=== PATIENT | female | born 1980 | race Hispanic/Latino ===

== ENCOUNTER 2017-02-12 10:01 | Inpatient (IN) | payer BC, OTHER ==
[2017-02-12] MEDS ORDERED: cefOXitin IV 2 gm in Dextrose 50 ML IVPB ONE (10:31)
[2017-02-12] MEDS: Lactated Ringer's 1,000 ML IV SCH ×2 (10:50→18:55)
--- NOTE | 2017-02-12 10:54 | OBHP ---
Datetime: 02/12/2017 10:37 IP Adm Impression: Term, intrauterine ; Active labor IP Adm Impression Other: previous csection IP Admit Plan: Admit to unit; Initiate Section protocol Admit Comment, IP Provider: chief complaint-contractions HPI 36 y/o at 38.3 wga here with c/o contractions since alst 2 days and worse since last nigh t.Patient denies vaginal bleeding or loss of fluid.Contractions worsened and hence she came over to [facility].Reporst active movement.denies loss of fluid course AMA, care with dr wagner PMH osteopenia, heart murmur, palpitations PSH csection, urethral dilation, tonsillectomy OBGYN HX ; csectionx1 for arrest of dilation; hx of hpv Social hx denies alcohol or illicit drug use.smoked 3-4 cig/day prior to but stopped whe n she found out she is pregant Exam see exam section A/P 36 y/o at 38.3 wga in labor.Hx of csection. -patient to be admitted as repeat csection in labor -start iv -routine labs Dr Wagner aware Pelvic Type - PN: Adequate Extremities - PN: Normal Abdomen - PN: Normal Back - PN: Normal Lungs - PN: Normal Heart - PN: Normal Neurologic - PN: Normal General - PN: Normal Contraction Comments Provider: every 2-5min Gestation - Est Wks by US: 38.3 IP Hx Assessment: The History has been Reviewed and is Current EGA AdmitDate IP: 38.3 Vital Signs Provider: Reviewed; Within Normal Limits IP Chief Complaint: Uterine contractions FHR Category Provider Fetus A: Category I Dilatation, Provider: 1 Effacement, Provider: 50 Station, Provider: -3 Genitourinary Exam: Normal DTRs - PN: Normal
[2017-02-12 11:20] LABS: BASO % 0.3 % (0.0-2.0); EOS # 0.1 K/uL (0.0-0.7); EOS % 0.9 % (0.0-4.0); HEMATOCRIT 37.9 % (34.0-47.0); LYMPH # 2.2 K/uL (1.0-4.3); LYMPH % 16.9 % (20.0-40.0); MEAN CELL VOLUME 96.7 fL (81.0-99.0); MEAN CORPUSCULAR HEMOGLOBIN 31.8 pg (27.0-31.0); MEAN CORPUSCULAR HGB CONC 32.9 g/dL (33.0-37.0); MEAN PLATELET VOLUME 10.3 fL (7.2-11.7); MONO # 0.8 K/uL (0.0-0.8); MONO % 6.4 % (0.0-10.0); NRBC % 0.1 % (0.0-2.0); RED CELL DISTRIBUTION WIDTH 13.9 % (11.5-14.5)
[2017-02-12] MEDS ORDERED: Oxytocin 20 units in LR 2,000 ML IV ONE (11:29)
[2017-02-12 11:37] LABS: RBC URINE 1 /hpf (0-3); URINE BACTERIA RARE (<OCC); URINE BILIRUBIN NEGATIVE (NEGATIVE); URINE BLOOD NEGATIVE (NEGATIVE); URINE COLOR Yellow (YELLOW); URINE GLUCOSE (UA) NORMAL (Normal); URINE KETONE NEGATIVE (NEGATIVE); URINE LEUKOCYTE ESTERASE NEG Leu/uL (Negative); URINE PROTEIN NEGATIVE (NEGATIVE); URINE UROBILINOGEN NORMAL mg/dL (0.2-1.0); WBC URINE 1 /hpf (0-5)
[2017-02-12] MEDS ORDERED: Sodium Citrate/Citric Acid 15 ml Sol PO ONE (11:56)
[2017-02-12] MEDS ORDERED: Sodium Citrate/Citric Acid 15 ml Sol ONE (12:06)
[2017-02-12 12:12] LABS: CHLORIDE 100 mmol/L (98-107); POTASSIUM 3.8 mmol/L (3.6-5.2); SODIUM 133 mmol/L (132-148)
[2017-02-12 12:14] LABS: ALB/GLOB RATIO 1.2 (1.0-2.1); AST/SGOT 26 U/L (14-36); BILIRUBIN,TOTAL 0.3 mg/dL (0.2-1.3); CARBON DIOXIDE 21 mmol/L (22-30); GFR AFRICAN-AMERICAN > 60
[2017-02-12 12:15] LABS: ALKALINE PHOSPHATASE 78 U/L (38-126); ALT/SGPT 18 U/L (9-52); BLOOD UREA NITROGEN 11 mg/dL (7-17); CALCIUM 8.1 mg/dl (8.6-10.4); GLUCOSE,RANDOM 78 mg/dL (65-105)
--- NOTE | 2017-02-12 12:54 | OBADHP ---
Datetime: 02/12/2017 10:37 IP Adm Impression Other: previous csection Admit Comment, IP Provider: chief complaint-contractions HPI 36 y/o at 38.3 wga here with c/o contractions since alst 2 days and worse since last nigh t.Patient denies vaginal bleeding or loss of fluid.Contractions worsened and hence she came over to [facility].Reporst active movement.denies loss of fluid course AMA, care with dr wagner PMH osteopenia, heart murmur, palpitations PSH csection, urethral dilation, tonsillectomy OBGYN HX ; csectionx1 for arrest of dilation; hx of hpv Social hx denies alcohol or illicit drug use.smoked 3-4 cig/day prior to but stopped whe n she found out she is pregant Exam see exam section A/P 36 y/o at 38.3 wga in labor.Hx of csection. -patient to be admitted as repeat csection in labor -start iv -routine labs Dr Wagner aware pt seen adn examined reports pain incresign 7/10 every 4-5 min, reports small lof x 3 days as well , but no big gush. 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[place] -on/anesthesia aware -npo, ivf -cosent signed rltcs + btl -antibitiocs gent/clinda -preop labs Pelvic Type - PN: Adequate Extremities - PN: Normal Abdomen - PN: Normal Back - PN: Normal Lungs - PN: Normal Heart - PN: Normal Neurologic - PN: Normal General - PN: Normal Contraction Comments Provider: every 2-5min Gestation - Est Wks by US: 38.3 IP Hx Assessment: The History has been Reviewed and is Current Vital Signs Provider: Reviewed; Within Normal Limits IP Chief Complaint: Uterine contractions FHR Category Provider Fetus A: Category I Dilatation, Provider: 1 Effacement, Provider: 50 Station, Provider: -3 Genitourinary Exam: Normal DTRs - PN: Normal EGA AdmitDate IP: 38.3 IP Adm Impression: Term, intrauterine ; Active labor IP Admit Plan: Admit to unit; Initiate Section protocol
[2017-02-12] MEDS ORDERED: Morphine 1 mg/ml preservative-free Inj(Duramorph) ONE (12:55)
[2017-02-12] MEDS ORDERED: Oxytocin 30 UNIT 500 ML IV SCH (13:00)
--- NOTE | 2017-02-12 14:24 | OBDS ---
DELIVERY PERSONNEL Delivery Doctor: Brandi Quinonez MD (Annotations: Data stored by [facility] on behalf of user) Scrub Nurse: Mya Roman Survey Interviewer: Jessi Pedraza RN Anesthesiologist: MATERNAL INFORMATION Delivery Anesthesia: Spinal Medications in Delivery: Pitocin 20 units IV Placenta Cultured: Yes Maternal Complications: None RN Comments: Liveborn Baby Boy. 9-9 Provider Comments: live male NOEMI position, apgars 9,9 weight 6lbs 3 ounces LABOR SUMMARY EDC: 02/23/2017 00:00 No. Babies in Womb: 1 Attempted: No Labor Anesthesia: None LABOR INFORMATION Reason for Induction: Not Applicable Oxytocin: N/A Group B Beta Strep: Negative (Annotations: 02/09/2017) Antibiotics # of Doses: 2 Antibiotics Time of Last Dose: Clindamycin 900mgIV @1212 and Gentamicin 120mg IV@ Steroids Given: None Reason Steroids Not Administered: Not Applicable MEMBRANES Membranes Rupture Method: Artificial Rupture of Membranes: 02/12/2017 13:32 Length of Rupture (hrs): 0.00 Amniotic Fluid Color: Clear Amniotic Fluid Amount: Moderate Amniotic Fluid Odor: Normal STAGES OF LABOR Stage 3 hrs: 0 Stage 3 min: 2 VAGINAL DELIVERY Laceration Repair Note: not applicable Count Comment: yes CSECTION DELIVERY Primary Indication: Repeat Elective CSection Urgency: Non Elective CSection Incidence: Repeat Labor: Labor Elective: Nonelective CSection Incision: Lower Uterine Transverse Sterilization Procedure: [place] BABY A INFORMATION Infant Delivery Date/Time: 02/12/2017 13:32 Method of Delivery: Born in Route : No : N/A Forceps: N/A Vacuum Extraction: N/A Shoulder Dystocia : No SHOULDER DYSTOCIA BABY A Infant Delivery Date/Time: 02/12/2017 13:32 PRESENTATION/POSITION BABY A Presentation: Cephalic Cephalic Presentation: Vertex Breech Presentation: N/A PLACENTA INFORMATION BABY A Placenta Delivery Time : 02/12/2017 13:34 Placenta Method of Delivery: Manual Removal Placenta Status: Delivered SCORES BABY A Heart Rate 1 min: >100 bpm Resp Effort 1 min: Good Cry Reflex Irritability 1 min: Cough or Sneeze or Pulls Away Muscle Tone 1 min: Active Motion Color 1 min: Body Luke, Extremities Blue Resuscitation Effort 1 min: N/A SCORE 1 MIN: 9 Heart Rate 5 min: >100 bpm Resp Effort 5 min: Good Cry Reflex Irritability 5 min: Cough or Sneeze or Pulls Away Muscle Tone 5 min: Active Motion Color 5 min: Body Luke, Extremities Blue Resuscitation Effort 5 min: N/A SCORE 5 MIN: 9 INFORMATION BABY A Gestational Age at Delivery: 38.3 Gestational Status: Term Outcome : Liveborn Condition : Stable Sex: Male IDENTIFICATION/MEDS BABY A ID Band Number: [id number] ID Band Location: Left Leg; Left Arm Sensor Applied: Yes Sensor Number: [id number] Sensor Location : Cord Clamp Vitamin K Given : Not Given Erythromycin Given: Not Given WEIGHT/LENGTH BABY A Birthweight (gms): 2815 Infant Weight (lb): 6 Infant Weight (oz): 3 Length Inches: 18.00 Infant Length cms: 45.7 CORD INFORMATION BABY A No. Cord Vessels: 3 Nuchal Cord : N/A Infant Cord pH Baby Arterial: 7.20 Cord Blood Taken: Yes Infant Suction: Mouth; Nose ASSESSMENT BABY A Infant Complications: None Physical Findings at Delivery: Within Normal Limits Respirations: Appears Normal Contact Center Specialist/ALS Called : No Infant Care By: Transferred To: [facility]
--- NOTE | 2017-02-12 14:27 | PCM.SURG1 ---
Surgeon's Initial Post Op Note - Surgeon's Notes Surgeon: Niharika Quinonez MD Air Conditioning Engineer: Dany Marie MD Type of Anesthesia: Spinal Pre-Operative Diagnosis: Term Intrauterine , 38+ weeks previous cesaren section, blanca in labor, multiparity desiring permanent tubal sterilzation Operative Findings: live male infant, delivered in NOEMI position, apgars 9,9 weight of 6lbs 3 ounces, normal uteurs, tubes and ovaries. Binder Cutter present at delivery. Bilateral tubal ligation performed. Dr Dayn Marie was present for entire case and essential in gaining entry, retraction, expsoure, holding the bladder blade, delivering the infant, performing the tubal ligation, closing all the layers, obtain hemostasis and was present for entire case. Post-Operative Diagnosis: same as above Operation Performed: Repeat Low transverse cesearen section, bilateral tubal ligation Specimen/Specimens Removed: placenta Estimated Blood Loss: EBL {In ML}: 700 Blood Products Given: N/A Drains Used: No Drains Post-Op Condition: Good Date of Surgery/Procedure: 02/12/17 Time of Surgery/Procedure: 13:00
--- NOTE | 2017-02-12 16:32 | OP ---
PROCEDURE DATE: 02/12/2017 SURGEON: Dr. Niharika Quinonez. RESULTS TECHNICIAN: Dr. Dany Marie. TYPE OF ANESTHESIA: Spinal, Dr. Stock. PREOPERATIVE DIAGNOSES: Term intrauterine , 38+ weeks, previous section, contracti ng, in labor, multiparity, desiring bilateral permanent tubal sterilization. OPERATIVE FINDINGS: Live male delivered in NOEMI position, Apgars 9 and 9, weight of 6 pounds 3 ounces, normal uterus, tubes, and ovaries bilaterally. Decorative Cutting Machine Tender present at delivery and bilater al tubal ligation performed. Dr. Dany Marie was present for the entire case and was essential in ga ining entry, retraction, exposure, holding the bladder blade, delivering the infant, performing the t ubal ligation, closing all layers, obtaining hemostasis and was present for the entire case. POSTOPERATIVE DIAGNOSES: Term intrauterine , 38+ weeks, previous section, contract ing, in labor, multiparity, desiring bilateral permanent tubal sterilization. OPERATIONS PERFORMED: Repeat low transverse section, bilateral tubal ligation. SPECIMEN: Placenta. ESTIMATED BLOOD LOSS: 700 mL. BLOOD PRODUCTS: None. COMPLICATIONS: None. DESCRIPTION OF PROCEDURE: The patient was taken to the operating where she was given spinal anesthes ia. Once this was found adequate, she was placed on the operating table in dorsal supine position. The patient was then prepared and draped in the usual normal sterile fashion. A timeout was done to confirm correct patient and correct procedure. Phelps catheter was inserted into the urethra to drain the bladder prior to the timeout procedure. The patient was given preoperative prophylactic antibio tic. Pfannenstiel skin incision was made with the existing incision and carried in line to the under lying fascia with Bovie. Fascia was incised in the midline and extended laterally with Bovie. Super ior aspect of the fascial incision was grasped, elevated with Christine clamps and ____ dissected off bl untly using the Bovie. Attention was then turned to the superior aspect of the incision which, in si milar fashion, was grasped and elevated with Christine clamps ____ dissected bluntly with use of the Bov ie. Rectus muscles were then bluntly in the midline. Peritoneum identified, entered in a clear space. Incision was extended laterally and superiorly until there was good visualization of th e bladder. The lower end of the Narinder was then inserted and the vesicouterine peritoneum was incis ed in a transverse fashion with bandage scissors. The incision extended laterally. Bladder flap was created digitally. The [place] was then reinserted. Lower uterine segment was incised in a transve rse fashion. The uterine incision extended laterally bluntly. The surgeon's hand entered the uterin e cavity. The baby's head was delivered atraumatically followed by delivery of the shoulders followe d by delivery of the body. Both oral and nasal passages of the baby were bulb suctioned. After the cord was pulsated for a minute, the umbilical cord was clamped and cut and the baby was handed off to the waiting disease education specialist. Cord blood and cord gases were collected and sent x 2. The placenta was then delivered manually. The uterus exteriorized, cleared of all clots and debris. The uterine inci felicitas was repaired with 0 Vicryl in a running continuous locked fashion, second layer with same suture was used to close uterus in a running imbricated manner. There were normal tubes and ovaries. Good hemostasis of the uterine incision. Next, the bilateral tubal ligation was then performed in a [place] manner in which the fallopian tube was grasped with a [place] clamp. The fallopian tube identified, suture ligated and cut with a 0 pl ain tie. Specimen was removed. The ends were then cauterized. There was good hemostasis noted on e ither end. The uterus was then returned to the abdomen with the tubes and ovaries. There was good h emostasis of all operative sites. The paracolic gutters were cleared of all clots and debris and the peritoneum was reapproximated and closed with 2-0 chromic in a running continuous fashion. The rect us was reapproximated and closed with 2-0 chromic in an interrupted manner. The fascia was reapproxi mated and closed with 0 Vicryl in a running continuous fashion. The subcutaneous space was closed wi th 2-0 plain in interrupted manner. Skin was reapproximated and closed with 4-0 Monocryl in a runnin g subcuticular fashion. The abdomen was then cleaned. The incision was also cleaned. Steri-Strips were applied. Pressure dressing was reapplied. At the end of the procedure, all needle, sponge and instrument counts were noted to be correct x 2. The patient tolerated the procedure well and was sen t to recovery in stable condition. Niharika Quinonez MD cc: [id number] TT: 02/12/2017 16:31:28 mn
[2017-02-12] MEDS: Simethicone 80 mg Chewtab PO SCH ×2 (17:42→21:28)
[2017-02-12] MEDS: Oxycodone/Acetaminophen 5/325 mg Tab PO PRN ×2 (17:47→23:51)
[2017-02-12] MEDS: Clindamycin 600mg/50ml D5W 50 ML IVPB SCH (20:13)
[2017-02-13] MEDS: Oxycodone/Acetaminophen 5/325 mg Tab PO PRN ×4 (04:13→17:26)
[2017-02-13] MEDS: Clindamycin 600mg/50ml D5W 50 ML IVPB SCH ×2 (04:16→11:38)
[2017-02-13] MEDS: Lactated Ringer's 1,000 ML IV SCH (04:17)
--- NOTE | 2017-02-13 07:26 | OBPPN ---
Datetime: 02/13/2017 07:23 PP Pain Prov: Within normal limits PP Nausea Prov: Denies PP Abdomen/Uterus Prov: Normal PP Lochia Prov: Normal PP Extremities Prov: Normal PP C/S Incision Prov: Normal PP Comments Phys Exam Prov: fudus below umblicus incision clean amnd dry ext no edema,no calf ten PP Impression Prov: Normal progression PP Plan Prov: Discharge PP Progress Note Prov: pt was seen at bed side, pain under control, no n/v, tolerating deit, voiding ,min lochi pod#1 s/p c/s cont post op carecare cbc reg deit cont pain management Vital Signs Provider PP: Reviewed; Within Normal Limits
[2017-02-13 08:31] LABS: BASO % 0.2 % (0.0-2.0); EOS # 0.1 K/uL (0.0-0.7); EOS % 0.8 % (0.0-4.0); HEMATOCRIT 35.5 % (34.0-47.0); LYMPH # 2.2 K/uL (1.0-4.3); LYMPH % 12.3 % (20.0-40.0); MEAN CELL VOLUME 97.3 fL (81.0-99.0); MEAN CORPUSCULAR HEMOGLOBIN 31.4 pg (27.0-31.0); MEAN CORPUSCULAR HGB CONC 32.2 g/dL (33.0-37.0); MEAN PLATELET VOLUME 10.1 fL (7.2-11.7); MONO % 5.8 % (0.0-10.0); NRBC % 0.1 % (0.0-2.0); RED CELL DISTRIBUTION WIDTH 14.2 % (11.5-14.5); WHITE BLOOD COUNT 17.7 K/uL (4.8-10.8)
[2017-02-13] MEDS: Simethicone 80 mg Chewtab PO SCH ×3 (09:32→17:26)
[2017-02-13] MEDS: Prenatal Multivit/Folic Acid/Iron Tab PO SCH (09:36)
[2017-02-13] MEDS ORDERED: Bisacodyl 5mg EC Tab PO ONE (12:57)
[2017-02-14] MEDS: Oxycodone/Acetaminophen 5/325 mg Tab PO PRN ×5 (02:50→21:07)
[2017-02-14 08:03] VITALS: O2SAT 98
[2017-02-14 08:14] LABS: BASO # 0.1 K/uL (0.0-0.2); BASO % 0.6 % (0.0-2.0); EOS # 0.2 K/uL (0.0-0.7); EOS % 1.5 % (0.0-4.0); HEMATOCRIT 37.2 % (34.0-47.0); LYMPH # 2.3 K/uL (1.0-4.3); LYMPH % 14.8 % (20.0-40.0); MEAN CELL VOLUME 97.3 fL (81.0-99.0); MEAN CORPUSCULAR HEMOGLOBIN 31.9 pg (27.0-31.0); MEAN CORPUSCULAR HGB CONC 32.8 g/dL (33.0-37.0); MEAN PLATELET VOLUME 9.6 fL (7.2-11.7); MONO % 6.6 % (0.0-10.0); RED CELL DISTRIBUTION WIDTH 14.2 % (11.5-14.5); WHITE BLOOD COUNT 15.5 K/uL (4.8-10.8)
[2017-02-14] MEDS: Simethicone 80 mg Chewtab PO SCH ×5 (09:26→21:10)
[2017-02-14] MEDS: Prenatal Multivit/Folic Acid/Iron Tab PO SCH (09:27)
--- NOTE | 2017-02-14 18:40 | OBPPN ---
Datetime: 02/14/2017 18:39 PP Pain Prov: Within normal limits PP Nausea Prov: Denies PP Flatus Prov: Yes PP BM Prov: No PP Breasts Prov: Normal PP Heart Prov: Normal PP Lungs Prov: Normal PP Abdomen/Uterus Prov: Normal PP Lochia Prov: Normal PP Vulva/Perineum Prov: Normal PP CVA Tenderness Prov: Normal PP Extremities Prov: Normal Vital Signs Provider PP: Reviewed; Within Normal Limits Datetime: 02/14/2017 18:38 PP Pain Prov comment: controlled PP C/S Incision Prov: Normal PP Progress Prov: Normal PP Comments Phys Exam Prov: incsioh c/d/i steri strip intact funds firm, bleow level of imbicu ve moderate lochia, non couls melling PP Impression Prov: Normal progression PP Plan Prov: Continue present management PP Progress Note Prov: delyaed entry pt seen adn examined 02/13/17 20:00pm s/p RTLCS POD #1 doing well -f/u am cbc -piisrael corbinnet -cont breast feeding, ambuation, bowel regimen IP PP Procedures: None
--- NOTE | 2017-02-14 18:42 | OBDCSUM ---
Datetime: 02/14/2017 18:41 Discharged to, Provider: Home Follow up at, Provider: Dr Quinonez Disch Instr Activity: Normal activity Disch Instr Diet: Regular Discharge Instructions, Provider: Routine instructions given Discharge Diagnosis, Provider: Term Delivered Discharge Time: 02/15/2017 09:00 Follow up in weeks, Provider: 1 week Disch Referrals: None Contraception discussed, Prov: Yes Disch Activity Restrictions: No exercising; No lifting; Minimize stair-climbing; No sexual activity; Nothing in vagina - [place], tampons, douche Discharge Comment, Provider: d/c in am _rto 1 week percautiosn given Contraception after Delivery: Tubal Ligation
--- NOTE | 2017-02-14 18:42 | OBPPN ---
Datetime: 02/14/2017 18:39 PP Comments Phys Exam Prov: incsion c/d/i fundus; firm, below lvel of umbiu s miminal lochia non foulse smelling PP Progress Note Prov: pain controlled iwth percoet/mtoirn. pt ambuating, voiding, passing flatus, n o bm, breast feeding, denies fevers, chils, ansue vomthgn, toleraing reulgar diet vss pe see above A/p s/p RLTCS POD #2 dfoing well -encoaureg eambuation/breast feeding -pain maneanget -antics d/w in AM
[2017-02-15 00:51] VITALS: BP 98/57; PULSE 69; RESP 20; TEMP 97.8
[2017-02-15] MEDS: Oxycodone/Acetaminophen 5/325 mg Tab PO PRN ×3 (01:05→11:14)
[2017-02-15 06:11] LABS: BASO % 0.4 % (0.0-2.0); EOS # 0.3 K/uL (0.0-0.7); EOS % 2.3 % (0.0-4.0); HEMATOCRIT 33.3 % (34.0-47.0); LYMPH # 2.7 K/uL (1.0-4.3); LYMPH % 22.9 % (20.0-40.0); MEAN CELL VOLUME 96.9 fL (81.0-99.0); MEAN CORPUSCULAR HEMOGLOBIN 32.2 pg (27.0-31.0); MEAN CORPUSCULAR HGB CONC 33.2 g/dL (33.0-37.0); MEAN PLATELET VOLUME 9.1 fL (7.2-11.7); MONO # 0.8 K/uL (0.0-0.8); RED CELL DISTRIBUTION WIDTH 13.9 % (11.5-14.5); WHITE BLOOD COUNT 11.7 K/uL (4.8-10.8)
[2017-02-15] MEDS: Simethicone 80 mg Chewtab PO SCH (09:19)
[2017-02-15] MEDS: Prenatal Multivit/Folic Acid/Iron Tab PO SCH (09:19)
== END 2017-02-15 13:15 | disposition home or self-care (01) | DRG 766 ==
LOC: C.EROB 10:01 → C.4D 10:31 → C.4M 16:36
PROVIDERS: ADMIT Obstetrics & Gynecology; ATTEND Obstetrics & Gynecology
PROC: 10D00Z1 Extraction of Products of Conception, Low, Open Approach (ICD-10-PCS; principal; 2017-02-12)
PROC: 0UL70ZZ Occlusion of Bilateral Fallopian Tubes, Open Approach (ICD-10-PCS; 2017-02-12)
DX: O34.219 Maternal care for unspecified type scar from previous cesarean delivery (principal); O09.523 Supervision of elderly multigravida, third trimester; Z37.0 Single live birth; Z3A.38 38 weeks gestation of pregnancy; Z30.2 Encounter for sterilization